=== PATIENT | male | born 1950 | race Caucasian/White ===

== ENCOUNTER 2023-03-16 14:08 | Emergency (ER) | payer OTHER ==
[2023-03-16 16:29] LABS: Bilirubin Neg (Negative); Blood, Urine Negative (Negative); Clarity Clear (Clear); Glucose, Urine (Dipstick) Normal (Negative); Ketone, Urine Negative (Negative); Leukocyte 25 (Negative); Nitrite Negative (Negative); Protein, Urine (Dipstick) Negative (Neg-Trace); Urobilinogen Normal mg/dL (Less than 2)
[2023-03-16 16:43] LABS: Bacteria/HPF 3+ HPF (None Seen); RBC/HPF None Seen HPF (0-3); Squamous Epithelial None Seen HPF (0-3)
== END 2023-03-16 17:23 | disposition home or self-care (01) ==
LOC: CSHERS 14:08
DX: S30.22XA Contusion of scrotum and testes, initial encounter (principal); W54.1XXA Struck by dog, initial encounter
CPT/HCPCS: 76870; 81003; 81015; 93976